=== PATIENT | male | born 1960 | race Caucasian/White ===

== ENCOUNTER 2022-07-30 10:18 | Outpatient (CLI) | payer OTHER | END 2022-07-30 10:19 | disposition home or self-care (01) | LOC: ULT 10:18 | PROVIDERS: ATTEND Physician Assistant Medical | DX: D50.0 Iron deficiency anemia secondary to blood loss (chronic) (principal); R10.11 Right upper quadrant pain; K82.8 Other specified diseases of gallbladder | CPT/HCPCS: 76705 ==